=== PATIENT | female | born 1930 | race Caucasian/White ===

== ENCOUNTER 2016-03-31 13:13 | Outpatient (CLI) ==
[2016-03-31 13:41] LABS: BILIRUBIN,URINE Negative (NEGATIVE); KETONES,URINE 1+ (NEGATIVE); LEUKOCYTE ESTERASE ,URINE Negative (NEGATIVE); NITRITE,URINE Negative (NEGATIVE); PROTEIN,URINE Trace (NEGATIVE); URINE, BLOOD Negative (NEGATIVE)
[2016-03-31 14:14] LABS: ADD URINE MICROSCOPIC YES
[2016-03-31 14:15] LABS: BACTERIA,URINE TRACE (NOT PRESENT)
== END 2016-03-31 13:14 | disposition home or self-care (01) ==
LOC: NONPT 13:13
PROVIDERS: ATTEND Family Medicine
DX: K55.9 Vascular disorder of intestine, unspecified (principal); I48.91 Unspecified atrial fibrillation; E11.9 Type 2 diabetes mellitus without complications; R82.90 Unspecified abnormal findings in urine
CPT/HCPCS: 81001; 87086

== ENCOUNTER 2016-12-01 16:03 | Outpatient (CLI) | END 2016-12-01 16:04 | disposition home or self-care (01) | LOC: AMBL 16:03 | DX: S01.81XA Laceration without foreign body of other part of head, initial encounter (principal); W18.30XA Fall on same level, unspecified, initial encounter; Y92.002 Bathroom of unspecified non-institutional (private) residence as the place of occurrence of the external cause ==

== ENCOUNTER 2018-07-23 11:28 | Emergency (ER) | payer OTHER ==
[2018-07-23 11:36] VITALS: BP 152/82; TEMP 98.1; BMI 36.6
--- NOTE | 2018-07-23 13:15 | CT ---
EXAM: CT of the head without contrast History: Head trauma. Technique: Multiplanar CT images through the head were obtained without the administration of IV con trast Findings: The visualized paranasal sinuses and mastoid air cells are clear in general. No acute citlalli varial abnormalities. Intracranially the ventricular and cisternal spaces are normal in size, shape and configuration for a patient of this age. No dominant mass or midline shift. No hydrocephalous. No acute intracranial hemorrhage or abnormal extraaxial fluid collections. Impression: No acute intracranial process
--- NOTE | 2018-07-23 13:20 | CT ---
EXAM: CT of the thoracic spine without contrast History: Thoracic back trauma. Comparison: None available. Technique: Multiplanar CT images through the thoracic spine were obtained without the administration of IV contrast Findings: No acute fracture or subluxation of the thoracic spine. Mild to moderate multilevel disc space narrowing with endplate sclerosis and osteophyte formation. Bony spinal canal is not compromis ed. Small right pleural effusion. Partially visualized mass-like area of consolidation within the r ight lower lobe. Atherosclerotic vascular calcifications. 6 mm ground-glass nodule within the left lower lobe. Impression: 1. No acute osseous abnormality of the thoracic spine. 2. Partially visualized mass-like area of consolidation within the right lower lobe could represent pneumonia but a malignant mass is not excluded. If this does not resolve on follow-up chest radiogra ph in 1-3 weeks a biopsy will be needed. 3. 6 mm ground-glass nodule within the superior segment of the left lower lobe.
--- NOTE | 2018-07-23 13:21 | CT ---
Exam: CT cervical spine HISTORY: Injury. Fall and pain worse in the neck and clavicle going into the shoulder. Procedures: 2 mm contiguous axial images were obtained through the cervical spine without the use of contrast. Sagittal and coronal reformatted images were also created and reviewed. Findings: The cervical spine demonstrates mild dextroscoliosis. Multilevel mild degenerative disc a nd facet arthropathy is noted. No acute fracture or listhesis is seen. Subcentimeter lymph nodes ar e noted throughout the neck soft tissues, without david lymphadenopathy. Atherosclerotic plaque is n oted. Limited visualization of the lung apices demonstrates no pneumothorax. Individual disc levels are evaluated as follows At C2-3 there is a small posterior disc bulge without central canal stenosis or significant neural fo raminal stenosis. At C3-4 there is a minimal posterior disc bulge without midline central canal stenosis or significant neural foraminal stenosis. At C4-5 there is a minimal disc bulge without central canal stenosis. Mild neural foraminal stenosis is noted on the left. At C5-6 there is a disc marginal osteophyte complex without midline central canal stenosis. Mild elissa ral foraminal stenosis is noted on the left. At C6-7 there is a minimal disc marginal osteophyte complex without central canal stenosis. Mild elissa ral foraminal stenosis is noted on the left. At C7-T1 there is a mild disc marginal osteophyte complex without central canal stenosis or significa nt neural foraminal stenosis. Impressions: Mild dextroscoliosis with no acute fracture or listhesis in the cervical spine. Multilevel mild degenerative disease in the cervical spine without significant central spinal canal s tenosis. Mild neural foraminal stenosis on the left at C4-5, C5-6 and C6-7. Findings were faxed to the emergency department at 1:05 p.m.
--- NOTE | 2018-07-23 13:26 | DI ---
Exam: Left shoulder three-view. HISTORY: Fall. Findings: Three views of the left shoulder are submitted. These demonstrate a diffusely osteopenic patient with no acute fracture or dislocation. There is no osseous erosion. No soft tissue calcific ations are noted. The adjacent left ribs appear intact and there is no pneumothorax seen. No focal soft tissue swelling. Impressions: Diffuse osteopenia with no acute fracture or dislocation of the left shoulder.
--- NOTE | 2018-07-23 13:39 | ED.PDOC ---
General ED Provider: Dr. AMARIS LIN Chief Complaint: Shoulder Pain/Injury Stated Complaint: FALL SHOULDER PAIN , NECK PAIN Time Seen by Physician: 11:30 Mode of Arrival: Walk-In Information Source: Patient Exam Limitations: No limitations Primary Care Provider: RONNY ALVARES Nursing and Triage Documentation Reviewed and Agree: Yes Does patient meet sepsis criteria?: No If yes, has appropriate treatment been initiated?: No System Inflammatory Response Syndrome: Not Applicable Sepsis Protocol: For patient's 13 years and over: Temp is 96.8 and below OR 101 and greater Pulse >90 BPM Resp >20/minute Acutely Altered Mental Status Are patient's symptoms suggestive of a new infection, such as: -Pneumonia -Skin, Soft Tissue -Endocarditis -UTI -Bone, Joint Infection -Implantable Device -Acute Abdominal Infection -Wound Infection -Meningitis -Blood Stream Catheter Infection -Unknown Trauma/Injury Complaint Exam - Trauma Complaint/Exam Location of Pain or Injury: Reports: Head, Neck, LUE (SHOULDER PAIN NECK PAIN) Mechanism of Injury: Reports: Fall (LAST WEEK) Onset/Duration: 1 WEEK Symptoms Are: Still present Timing of Treatment: Delayed Initial Severity: Mild Current Severity: Mild Character: Reports: Aching Aggravating: Reports: Movement Alleviating: Reports: Rest Associated Signs and Symptoms: Denies: LOC, Confusion, Memory loss, Lethargy, Vomiting, Bleeding, Bruising, Swelling, Extremity disuse, Painful respiration, Hoarseness, Dysphagia, Hemoptysis, Significant blood loss Related History: Reports: Similar episode Penetrating Injury Risk Factors: Reports: None Related Surgical History: Reports: None Nexus Low Risk Criteria: No post-midline CS tender, No evidence of intoxicat., No Altered LOC, No focal neuro deficit, No distracting injuries Glascow Coma Scale (see protocol): 15 Compartment Syndrome Risk Factors: Present: Pain Trauma Findings: Present: Neck tenderness. Absent: [place] eyes, Hemotympanum, Nasal deformity, Dental tenderness, Dental injury, Dental malocclusion, Neck spasm, SubQ Air, Crepitus, Airway obstructed, Trachea displaced, Labored respirations, Decreased breath sounds, Muffled heart sounds, Weak pulses, Absent pulses, Abdominal distention, Pelvic tenderness, Pelvic instability Differential Diagnoses: Fracture, Sprain, Strain Review of Systems - Review Of Systems Constitutional: Reports: No symptoms Eyes: Reports: No symptoms Ears, Nose, Mouth, Throat: Reports: No symptoms Respiratory: Reports: No symptoms Cardiac: Reports: No symptoms GI: Reports: No symptoms : Reports: No symptoms Musculoskeletal: Reports: Neck pain Skin: Reports: No symptoms Neurological: Reports: Headache Endocrine: Reports: No symptoms Hematologic/Lymphatic: Reports: No symptoms All Other Systems: Reviewed and Negative Past Medical History - Past Medical History Previously Healthy: Yes Endocrine: Reports: DM 2, Dyslipidemia Cardiovascular: Reports: Hypertension Respiratory: Reports: None Hematological: Reports: None Gastrointestinal: Reports: None Genitourinary: Reports: None Neuro/Psych: Reports: None Musculoskeletal: Reports: None Cancer: Reports: Lung (HE DOES NOT WISH TO HAVE TREATMENT) Last Menstrual Period: n/a - Surgical History General Surgical History: Reports: None - Family History Family History: Reports: None - Social History Smoking Status: Former smoker Hx Substance Use: No Alcohol Screening: None Physical Exam - Physical Exam Appearance: Well-appearing, No pain distress, Well-nourished Eyes: HOLDEN, EOMI, Conjunctiva clear ENT: Ears normal, Nose normal, Oropharynx normal Respiratory: Airway patent, Breath sounds clear, Breath sounds equal, Respirations nonlabored Cardiovascular: RRR, Pulses normal, No rub, No murmur GI/: Soft, Nontender, No masses, Bowel sounds normal, No Organomegaly Musculoskeletal: Normal strength, ROM intact, No edema, No calf tenderness Skin: Warm, Dry, Normal color Neurological: Sensation intact, Motor intact, Reflexes intact, Cranial nerves intact, Alert, Oriented Psychiatric: Affect appropriate, Mood appropriate Interpretation - Radiology Interpretation Radiology Interpretation By: Radiologist Radiology Results: No acute changes Critical Care Note - Critical Care Note Total Time (mins): 0 Course - Course Orders, Labs, Meds: Orders Category Date Time Status CT CERVICAL SPINE W/O CONTRAST Stat RADS 07/23/18 12:[address] HEAD W/O CONTRAST Stat RADS 07/23/18 12:[address] THORACIC SPINE W/O CONTRAST Stat RADS 07/23/18 12:02 Completed SHOULDER, LEFT MIN 2V Stat RADS 07/23/18 12:02 Completed Vital Signs: Temp Pulse Resp BP Pulse Ox 07/23/18 11:29 98.1 F 97 H 16 152/82 H 97 Departure - Departure Time of Disposition: 13:40 Disposition: HOME SELF-CARE Discharge Problem: Shoulder pain Instructions: Cervical Strain (DC), Shoulder Pain (ED) Condition: Good Pt referred to PMD for follow-up: Yes IPMP verified?: No Additional Instructions: Please call your Family Physician as soon as possible to schedule a follow-up appointment. Allergies/Adverse Reactions: Allergies adhesive tape Adverse Reaction (Verified 07/23/18 11:38) defibrotide [From Defitelio] Adverse Reaction (Verified 07/23/18 11:38) Iodinated Contrast- Oral and IV Dye Adverse Reaction (Verified 07/23/18 11:38) Home Medications: Ambulatory Orders Aspirin [Aspir-Low] 81 mg PO DAILY 07/23/18 Atorvastatin Calcium 10 mg PO DAILY 07/23/18 Diltiazem HCl [Diltiazem 24Hr ER] 240 mg PO DAILY 07/23/18 Glyburide 2.5 mg PO BID 07/23/18 Lisinopril 10 mg PO DAILY 07/23/18 Metformin HCl 500 mg PO BID 07/23/18 Disposition Discussed With: Patient
== END 2018-07-23 13:56 | disposition home or self-care (01) ==
LOC: ED 11:28
DX: M25.519 Pain in unspecified shoulder (principal); M54.2 Cervicalgia; R51 Headache
CPT/HCPCS: 99283